=== PATIENT | female | born 1985 | race Caucasian/White ===

== ENCOUNTER 2017-11-29 07:19 | Day surgery (SDC) | payer MEDICAID, SELFPAY ==
[2017-11-26 12:01] LABS: Prothrombin Time (Protime)PT. 13.1 SECONDS (11.7-14.9)
[2017-11-26 12:02] LABS: Hematocrit 41.4 % (37-47); Hemoglobin 13.2 g/dl (12.0-15.0); Mean Corp Hgb Conc 31.9 g/gl (32-36); Mean Corpuscular Hgb 29.4 pg (27.0-32.0); Mean Corpuscular Volume 92.2 fL (81-99); Partial Thromboplast Time 27.6 Seconds (24.1-36.2); Platelet Count 169 K/mm3 (150-450); RBC Distribution Width CV 14.1 % (11.6-14.6); RBC Distribution Width SD 47.6 fl (35.1-43.9); Red Blood Count 4.49 M/mm3 (4.2-5.4); White Blood Count 7.7 K/mm3 (4.4-11.0)
[2017-11-26 12:08] LABS: Scan Indicated on CBC? Y/N NO
[2017-11-29] VITALS (8 sets, daily range): BP systolic 108–134; BP diastolic 72–90; PULSE 70–89; RESP 16–18; TEMP 36.2–36.4; O2SAT 92–97; BMI 29.7
[2017-11-29 07:50] LABS: Internal QC Validated? YES +Cl - CLEAR BKGD; Pregnancy, Urine Negative Negative
--- NOTE | 2017-11-29 08:55 | FALS_PTH ---
PATIENT: KHANH BERNAL LOC: [facility] U#:[id number] AGE/SX: 32/F ROOM: RE11/29/[address]: Dr. Jasmine Robison MD : 1985 BED: DIS: 11/29/2017 SPEC #: [id number] RECD: 11/29/17 10:37 STATUS: JAZMINE REDuy #: [id number] NATHAN: 11/29/17 08:[address]: Jasmine Menendez DEPT: SURGICAL PATHOLOGY RECD BY: Shane Hart ENTERED: 11/29/17 12:17 SP TYPE: FALL TUBES OTHR DR: Dr. Farzana Caicedo, DO Tissues: A - Fallopian tube B - Peritoneum, NOS Procedures: Surgery Specimen Level II Surgery Specimen Level IV HEADER OPERATION: Laparoscopic salpingectomy and peritoneal biopsy PRE-OP DIAGNOSIS: Sterilization request, left ovarian cyst TISSUE SUBMITTED: A ? Bilateral fallopian tubes, tag on right tube, B ? Posterior cul-de-sac peritoneum MICROSCOPIC DIAGNOSIS A. Bilateral fallopian tubes, salpingectomy: Bilateral fallopian tubes including fimbrial ends, no pathologic diagnosis. B. Posterior cul-de-sac peritoneum, biopsy: Fragments of mesothelial-lined adipose tissue with focal changes consistent with endometriosis and reactive changes. ROSA:virgil 11/30/17 MICROSCOPIC DESCRIPTION Slides are reviewed. GROSS DESCRIPTION A - Received is one container labeled with the patient's name and designated bilateral fallopian tubes, tie on right tube. The specimen consists of bilateral fallopian tubes including fimbrial ends. The right tube is identified by a suture. The right fallopian tube measures 5.5 cm in length and 0.7 cm in diameter. The left fallopian tube measures 6 cm in length and 0.7 cm in diameter. Sections reveal unremarkable cut surfaces. [place] sections are submitted in two cassettes as follows: 1 - right tube, 2 - left tube. B - Received in fixative is one container labeled with the patient's name and designated posterior cul-de-sac peritoneum. The specimen consists of two pieces of george-pink soft tissue measuring 2.5 x 0.5 x 0.2 cm and 0.4 x 0.2 x 0.1 cm. The entire specimen is submitted in one cassette. / ROSA:virgil 11/29/17 TC:5 CPT: 12208 x2, 36642
--- NOTE | 2017-11-29 10:07 | PCM.OPRPT ---
Problem List (1) Request for sterilization Status: Acute Report of Operation Date of Procedure: 11/29/17 Pre-Operative Diagnosis: Sterilization request, possible endometriosis/adenomyosis Post-Operative Diagnosis: Sterilization request, endometriosis Surgery/Procedure Performed:: Laparoscopic bilateral salpingectomy, peritoneal biopsy entry level sales associate: Farzana Castaneda Type of Anesthesia:: General, Local Anesthesiologist: Sanya Carroll Specimen's removed: 1. Bilateral tubes 2. posterior cul-de-sac biopsy Estimated Blood Loss (mL): 10 Fluids Replaced: 1000 mL Description of Procedure: Indications: Ms. Pepe is a 32-year-old para 3 desiring sterilization. She was counseled regarding management options and as well as reversible contraceptives and opted to proceed with laparoscopic bilateral salpingectomy. She also has menorrhagia and sonographic evaluation suggested adenomyosis the left hemorrhagic ovarian cyst. Following discussion agreed to proceed with peritoneal biopsy any evidence of endometriosis, possible ovarian cyst drainage possible ovarian cystectomy as indicated. Risks, benefits, indications, and alternatives of procedure were reviewed at length. Procedure: The patient was brought to the operating room and signed and was performed. She is placed in a dorsal supine position and induced under general anesthesia and intubated. She was then repositioned into dorsal lithotomy. Perineum and abdomen were prepped and draped in sterile fashion. She was then repositioned into high lithotomy and speculum placed into the vagina. The cervix was grasped at the anterior cervical lip using a single-tooth tenaculum and a Juan uterine manipulator was placed and secured. The speculum was removed from the vagina. The patient was then placed into low lithotomy attention turned to the abdomen. An inferior umbilicus incision was made using a scalpel and Veress needle was placed with successful hanging drop test and no aspirate. The abdomen was insufflated to 15 mmHg. the varies needle was removed following placement of Trendelenburg. And a 5 mm trocar was placed at this inferior umbilicus site under laparoscopic guidance confirming atraumatic entry into the abdominal cavity. The abdomen and pelvis were inspected there was normal-appearing appendix and upper abdomen. There did appear to be small splotches of blood throughout the anterior and posterior cul-de-sac consistent with hemorrhagic ruptured cyst. Right and left lower quadrant incisions were made under transillumination and continue to proceed with laparoscopy. The left tubal fimbria was identified and the tube was transected from the mesosalpinx using the Enseal device. Using serial clamping coagulation and transection salpingectomy was performed. In similar fashion salpingectomy was also performed on the right side. These were removed via the 5 mm ports. The ovaries on inspection were normal with the presence of small cysts. Thus I deferred any cyst drainage the patient was otherwise asymptomatic for ovarian cyst. The anterior posterior cul-de-sacs were then irrigated and suctioned for clear evaluation. There did appear to be a peritoneal depression just inferior to the uterosacral ligaments and the posterior cul-de-sac surrounding nonblanching lesions.. This peritoneum was resected using sharp and blunt dissection using care to avoid the underlying rectum. the peritoneal biopsy sent as a specimen. Darline was placed at the site of the peritoneal biopsy with excellent hemostasis. The Trendelenburg was reversed patient was flattened and the abdomen was desufflated the patient was given several deep breaths. The trochars were removed from the abdomen. The skin was closed using 4-0 Monocryl by the THEOLOGY PROFESSOR under my supervision. Local injection of half percent Sensorcaine was placed at the incisional sites for a total of 15 mL. The incisions were subsequently covered with Steri-Strips and OpSite dressing. The patient was then placed into dorsal supine position, awakened, extubated and she will be transported to the recovery room. sponge, instrument and needle counts were correct ?2. - Complications None - Admit VTE Documentation VTE Present on Admission: No VTE Mechan Device Prophylaxis: SCD's VTE Pharm Prophylaxis ordered?: No
[2017-11-29] MEDS: Bupivacaine Mpf 0.5% 30 ML VIAL (10:10)
--- NOTE | 2017-11-29 10:19 | OP.PCM_ITS ---
Problem List (1) Request for sterilization Status: Acute Report of Operation Date of Procedure: 11/29/17 Pre-Operative Diagnosis: Sterilization request, possible endometriosis/ adenomyosis Post-Operative Diagnosis: Sterilization request, endometriosis Surgery/Procedure Performed:: Laparoscopic bilateral salpingectomy, peritoneal biopsy hydrology teacher: Farzana Castaneda Type of Anesthesia:: General, Local Anesthesiologist: Sanya Carroll Specimen's removed: 1. Bilateral tubes 2. posterior cul-de-sac biopsy Estimated Blood Loss (mL): 10 Fluids Replaced: 1000 mL Description of Procedure: Indications: Ms. Pepe is a 32-year-old para 3 desiring sterilization. She was counseled regarding management options and as well as reversible contraceptives and opted to proceed with laparoscopic bilateral salpingectomy. She also has menorrhagia and sonographic evaluation suggested adenomyosis the left hemorrhagic ovarian cyst. Following discussion agreed to proceed with peritoneal biopsy any evidence of endometriosis, possible ovarian cyst drainage possible ovarian cystectomy as indicated. Risks, benefits, indications, and alternatives of procedure were reviewed at length. Procedure: The patient was brought to the operating room and signed and was performed. She is placed in a dorsal supine position and induced under general anesthesia and intubated. She was then repositioned into dorsal lithotomy. Perineum and abdomen were prepped and draped in sterile fashion. She was then repositioned into high lithotomy and speculum placed into the vagina. The cervix was grasped at the anterior cervical lip using a single-tooth tenaculum and a Juan uterine manipulator was placed and secured. The speculum was removed from the vagina. The patient was then placed into low lithotomy attention turned to the abdomen. An inferior umbilicus incision was made using a scalpel and Veress needle was placed with successful hanging drop test and no aspirate. The abdomen was insufflated to 15 mmHg. the varies needle was removed following placement of Trendelenburg. And a 5 mm trocar was placed at this inferior umbilicus site under laparoscopic guidance confirming atraumatic entry into the abdominal cavity. The abdomen and pelvis were inspected there was normal-appearing appendix and upper abdomen. There did appear to be small splotches of blood throughout the anterior and posterior cul-de-sac consistent with hemorrhagic ruptured cyst. Right and left lower quadrant incisions were made under transillumination and continue to proceed with laparoscopy. The left tubal fimbria was identified and the tube was transected from the mesosalpinx using the Enseal device. Using serial clamping coagulation and transection salpingectomy was performed. In similar fashion salpingectomy was also performed on the right side. These were removed via the 5 mm ports. The ovaries on inspection were normal with the presence of small cysts. Thus I deferred any cyst drainage the patient was otherwise asymptomatic for ovarian cyst. The anterior posterior cul-de-sacs were then irrigated and suctioned for clear evaluation. There did appear to be a peritoneal depression just inferior to the uterosacral ligaments and the posterior cul-de-sac surrounding nonblanching lesions.. This peritoneum was resected using sharp and blunt dissection using care to avoid the underlying rectum. the peritoneal biopsy sent as a specimen. Darline was placed at the site of the peritoneal biopsy with excellent hemostasis. The Trendelenburg was reversed patient was flattened and the abdomen was desufflated the patient was given several deep breaths. The trochars were removed from the abdomen. The skin was closed using 4-0 Monocryl by the INFORMATION TECHNOLOGY AUDIT MANAGER under my supervision. Local injection of half percent Sensorcaine was placed at the incisional sites for a total of 15 mL. The incisions were subsequently covered with Steri-Strips and OpSite dressing. The patient was then placed into dorsal supine position, awakened, extubated and she will be transported to the recovery room. sponge, instrument and needle counts were correct ?2. - Complications None - Admit VTE Documentation VTE Present on Admission: No VTE Mechan Device Prophylaxis: SCD's VTE Pharm Prophylaxis ordered?: No
--- NOTE | 2017-11-29 10:27 | PCM.DC ---
- Discharge Diagnoses Current Active Problems: Current Active and Chronic Problems Request for sterilization (Acute) Endometriosis You will use the following diet at home:: No restrictions Your food should be the consistency of: Regular Discharge Activity: Return to Normal Activity, May not drive while taking narcotic pain medications., May Shower, - - No driving for 24-48 hours Return to work on:: 12/03/17 May resume sexual activity in: 4 weeks Lifting Restrictions: 10 lb Call your doctor if you observe: Fever of 101 or Higher, Inability to urinate, Inability to have a bowel movement, Using more than one pad per hour, Shortness of breath, Chest pain, Uncontrolled pain Suture Line Care: Avoid Pulling/Pushing Cleanse incision/area with: Soap & Water Additional Dressing/Incision Instructions:: Remove incisional dressing in 24 hours, remove steristrip bandaids in 3 days Allergies/Adverse Reactions: Allergies No Known Allergies Allergy (Verified 11/22/17 09:18) Medications to take at Discharge Meloxicam [Mobic] 7.5 mg PO DAILY 11/22/17 Oxycodone [Oxyir] 5 mg PO Q4H PRN PRN 5 Days #20 tablet 11/29/17 The following prescriptions were given: Oxycodone [Oxyir] 5 mg PO Q4H PRN PRN 5 Days #20 tablet PRN Reason: Pain Primary Care Physician: Farzana Caicedo DO [Primary Care Provider] - Please Follow Up With: Jasmine Shannon MD When: 2-4 weeks
== END 2017-11-29 15:01 | disposition home or self-care (01) ==
LOC: SDC 07:19 → AC 07:20
PROVIDERS: Specialist; Visit Provider Obstetrics & Gynecology
PROC: (CPT 58661; principal; 2017-11-29 08:40)
DX: Z30.2 Encounter for sterilization (principal); N80.3 Endometriosis of pelvic peritoneum; N92.0 Excessive and frequent menstruation with regular cycle; N83.202 Unspecified ovarian cyst, left side; F17.210 Nicotine dependence, cigarettes, uncomplicated
CPT/HCPCS: 49321; 58661; 36415; 81025; 85027; 85610; 85730; 86850; 86900; 88302; 88305; J7120; C1760; J2405

== ENCOUNTER → 2018-04-08 14:58 | Outpatient (CLI) | payer MEDICAID, SELFPAY ==
[2018-04-08 17:11] LABS: Glucose 91 mg/dL (74-106)
[2018-04-08 17:54] LABS: Hemoglobin A1c 4.8 % (4.2-6.3)
[2018-04-12 18:11] LABS: HPV APTIMA, High Risk Negative (Negative)
== END ==
PROVIDERS: Visit Provider Obstetrics & Gynecology
DX: B37.9 Candidiasis, unspecified (principal)
CPT/HCPCS: 36415; 82947; 83036; 88175; G0145

== ENCOUNTER 2018-05-16 08:46 | Observation (INO) | payer MEDICAID, SELFPAY ==
[2018-05-14 17:44] LABS: Hematocrit 41.1 % (37-47); Hemoglobin 13.3 g/dl (12.0-15.0); Mean Corp Hgb Conc 32.4 g/gl (32-36); Mean Corpuscular Hgb 30.2 pg (27.0-32.0); Mean Corpuscular Volume 93.4 fL (81-99); Mean Platelet Vol. 11.2 fl (6.2-12.0); Platelet Count 192 K/mm3 (150-450); RBC Distribution Width CV 13.1 % (11.6-14.6); RBC Distribution Width SD 45.1 fl (35.1-43.9); White Blood Count 11.1 K/mm3 (4.4-11.0)
[2018-05-14 17:46] LABS: Scan Indicated on CBC? Y/N NO
[2018-05-14 17:48] LABS: International Normalized Ratio 0.9; Partial Thromboplast Time 25.9 Seconds (24.1-36.2); Prothrombin Time (Protime)PT. 12.2 SECONDS (11.7-14.9)
[2018-05-16] VITALS (12 sets, daily range): BP systolic 95–125; BP diastolic 57–83; PULSE 63–86; RESP 16–18; TEMP 36.3–37.2; O2SAT 94–99; BMI 29.7
--- NOTE | 2018-05-16 05:21 | PCM.HPOB.BLA ---
- Problem List (1) Excessive and frequent menstruation with regular cycle Status: Acute (2) Dysmenorrhea Status: Acute (3) Request for sterilization Status: Acute History and Physical Date of Admission: 05/16/18 Surgical History and Physical Date: 05/14/2018 Name: LIVIER PEPE Age: 32 Date of : 1985 Livier Pepe, a 32 year old female 3 0 1 0 3, presents for TVH on May 16, 2018 at 8:30. -- Presents for scheduled TVH for history of excessive and frequency menses with regular cycle and dysmenorrhea related to endometriosis. She had laparoscopic sterilization in 11/2017 and peritoneal biopsy confirmed endometriosis. Suspect adenomyosis as well. [facility] MEDICATIONS HISTORY: Patient is also takin. Lexapro 10 mg tablet, 1 PO QD ALLERGIES: NKA Infections - Bronchitis and Chicken pox Illnesses - anxiety Accidents - no injuries of consequence Hospitalizations - Childbirth Review of Systems: GENERAL - Denies fever, or chills SKIN - Denies skin changes EYES - wears eye glasses EARS - Denies difficulty hearing NOSE - Denies nasal congestion or bleeding MOUTH - Denies sore throat or difficulty swallowing NECK - Denies pain or swelling RESPIRATORY - Denies shortness of breath or wheezing CARDIOVASCULAR - Denies palpitations or chest pain GASTROINTESTINAL - Denies nausea, vomiting, diarrhea, constipation GENITOURINARY - vaginal itching MUSCULOSKELETAL - Denies joint or muscle pain NEUROLOGICAL - Denies localized numbness or weakness PSYCHIATRIC - Denies depression or anxiety ENDOCRINE - Denies heat or cold intolerance, weight loss or gain HEMATO-IMMUNOLOGIC - Denies excesive bleeding with cuts SOCIAL HISTORY: Alcohol Use - socially Smoking - 6 cigs per day Diet - balanced Diet, caffeine < 2 drinks per day and 4-5 cups water daily Lifestyle - moderate stress lifestyle Exercise - minimal Seat Belt Use - always 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 Maternal Grandfather: Colon Cancer. Paternal Grandfather: bladder ca. MENSTRUAL HISTORY: LMP Known?- DefiniteAmount/Duration - extended, Regularity - Irregular, Frequency - monthly days, LMP - 04/27/18, Age Onset Menarche - 13 PAST PREGNANCIES: Total Pregnancies - 4; Full Term Pregnancies - 3; Premature - 0; Abortions, Induced - 1; Abortions, Spontaneous - 0; Ectopics - 0; Multiple Births - 0; Living Children - 3 SURGICAL HISTORY: 1. 11/29/2017 lap Bilateral salpingectomy, peritoneal biopsy ; Jasmine Robison MD - 2. [place] Teeth Removal ; - 3. Elective AB ; - PHYSICAL EXAM BP- 124/82 Sitting, Right arm, regular cuff Temp- 98.5 Taken Orally Weight- 185.65007 lbs Height- 66 inch BMI:29.92 CONSTITUTIONAL - NAD, well nourished, and well developed SKIN - No rash, lesions, or ulcers HEENT - normocephalic, atraumatic, sclerae anicteric LUNGS - CTA x2 without wheezes, crackles or rales CARDIAC - Regular rate and rhythm without rubs, murmurs, or gallops BREAST - No dominant masses, no tenderness, no axillary adenopathy, no nipple discharge, no skin changes ABDOMEN - Without hepatosplenomegaly, distention, masses, rebound, or guarding; normal bowel sounds; no hernias EXTREMITIES - No edema or calf tenderness NEUROLOGICAL - normal gait, normal balance, normal motor PSYCHIATRIC - A and O to time, place, person, mood and affect External Genitial Vagina - non-tender without lesions Urethra/Urethral Meatus - non-tender Bladder - non-tender Vagina - vaginal kirkpatrick are pink and moist without loss of rugae and no evidence of atropy Cervix - without cervical motion tenderness and has normal size and features without evident lesions Uterus - enlarged uterus 8 wks, wt 125-150 g Adnexa - clear without massess or tenderness Pap - 04/08/18 NILM ULTRASOUND 11/26/17 UTERUS: 8.9 x 5.2 x 4.2 cm and is coarse in texture. ENDOMETRIAL ECHO: .7 cm. RIGHT OVARY: 3.2 x 2.1 x 2.1 cm. LEFT OVARY: 3.2 x 2.8 x 1.5 cm and contains a 4.7 x 3.4 x 3.8 cm complex mass consistent with hemorrhagic cyst. ASSESSMENT/PLAN: 1. Excessive And Frequent Menstruation With Regular Cycle and Secondary Dysmenorrhea Pathology confirmed endometriosis 11/2017 Plan for TVH - reviewed how performed and surgical risks, benefits, indications and alternatives. Pt desires to proceed. Consents signed and reviewed. Preop packet given. Discussed preoperative preparation, anticipated hospitalization and recovery. CBC, coags obtained and wnl. NPO @ [place] prior to surgery
--- NOTE | 2018-05-16 05:26 | HP.PCM_ITS ---
- Problem List (1) Excessive and frequent menstruation with regular cycle Status: Acute (2) Dysmenorrhea Status: Acute (3) Request for sterilization Status: Acute History and Physical Date of Admission: 05/16/18 Surgical History and Physical Date: 05/14/2018 Name: LIVIER PEPE Age: 32 Date of : 1985 Livier Pepe, a 32 year old female 3 0 1 0 3, presents for TVH on May 16, 2018 at 8:30. -- Presents for scheduled TVH for history of excessive and frequency menses with regular cycle and dysmenorrhea related to endometriosis. She had laparoscopic sterilization in 11/2017 and peritoneal biopsy confirmed endometriosis. Suspect adenomyosis as well. [facility] MEDICATIONS HISTORY: Patient is also takin. Lexapro 10 mg tablet, 1 PO QD ALLERGIES: NKA Infections - Bronchitis and Chicken pox Illnesses - anxiety Accidents - no injuries of consequence Hospitalizations - Childbirth Review of Systems: GENERAL - Denies fever, or chills SKIN - Denies skin changes EYES - wears eye glasses EARS - Denies difficulty hearing NOSE - Denies nasal congestion or bleeding MOUTH - Denies sore throat or difficulty swallowing NECK - Denies pain or swelling RESPIRATORY - Denies shortness of breath or wheezing CARDIOVASCULAR - Denies palpitations or chest pain GASTROINTESTINAL - Denies nausea, vomiting, diarrhea, constipation GENITOURINARY - vaginal itching MUSCULOSKELETAL - Denies joint or muscle pain NEUROLOGICAL - Denies localized numbness or weakness PSYCHIATRIC - Denies depression or anxiety ENDOCRINE - Denies heat or cold intolerance, weight loss or gain HEMATO-IMMUNOLOGIC - Denies excesive bleeding with cuts SOCIAL HISTORY: Alcohol Use - socially Smoking - 6 cigs per day Diet - balanced Diet, caffeine < 2 drinks per day and 4-5 cups water daily Lifestyle - moderate stress lifestyle Exercise - minimal Seat Belt Use - always 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 Maternal Grandfather: Colon Cancer. Paternal Grandfather: bladder ca. MENSTRUAL HISTORY: LMP Known?- DefiniteAmount/Duration - extended, Regularity - Irregular, Frequency - monthly days, LMP - 04/27/18, Age Onset Menarche - 13 PAST PREGNANCIES: Total Pregnancies - 4; Full Term Pregnancies - 3; Premature - 0; Abortions, Induced - 1; Abortions, Spontaneous - 0; Ectopics - 0; Multiple Births - 0; Living Children - 3 SURGICAL HISTORY: 1. 11/29/2017 lap Bilateral salpingectomy, peritoneal biopsy ; Jasmine Robison MD - 2. [place] Teeth Removal ; - 3. Elective AB ; - PHYSICAL EXAM BP- 124/82 Sitting, Right arm, regular cuff Temp- 98.5 Taken Orally Weight- 185.03396 lbs Height- 66 inch BMI:29.92 CONSTITUTIONAL - NAD, well nourished, and well developed SKIN - No rash, lesions, or ulcers HEENT - normocephalic, atraumatic, sclerae anicteric LUNGS - CTA x2 without wheezes, crackles or rales CARDIAC - Regular rate and rhythm without rubs, murmurs, or gallops BREAST - No dominant masses, no tenderness, no axillary adenopathy, no nipple discharge, no skin changes ABDOMEN - Without hepatosplenomegaly, distention, masses, rebound, or guarding; normal bowel sounds; no hernias EXTREMITIES - No edema or calf tenderness NEUROLOGICAL - normal gait, normal balance, normal motor PSYCHIATRIC - A and O to time, place, person, mood and affect External Genitial Vagina - non-tender without lesions Urethra/Urethral Meatus - non-tender Bladder - non-tender Vagina - vaginal kirkpatrick are pink and moist without loss of rugae and no evidence of atropy Cervix - without cervical motion tenderness and has normal size and features without evident lesions Uterus - enlarged uterus 8 wks, wt 125-150 g Adnexa - clear without massess or tenderness Pap - 04/08/18 NILM ULTRASOUND 11/26/17 UTERUS: 8.9 x 5.2 x 4.2 cm and is coarse in texture. ENDOMETRIAL ECHO: .7 cm. RIGHT OVARY: 3.2 x 2.1 x 2.1 cm. LEFT OVARY: 3.2 x 2.8 x 1.5 cm and contains a 4.7 x 3.4 x 3.8 cm complex mass consistent with hemorrhagic cyst. ASSESSMENT/PLAN: 1. Excessive And Frequent Menstruation With Regular Cycle and Secondary Dysmenorrhea Pathology confirmed endometriosis 11/2017 Plan for TVH - reviewed how performed and surgical risks, benefits, indications and alternatives. Pt desires to proceed. Consents signed and reviewed. Preop packet given. Discussed preoperative preparation, anticipated hospitalization and recovery. CBC, coags obtained and wnl. NPO @ [place] prior to surgery
[2018-05-16 05:49] LABS: Internal QC Validated? YES +Cl - CLEAR BKGD; Pregnancy, Urine Negative Negative
--- NOTE | 2018-05-16 07:15 | HYST_PTH ---
PATIENT: KHANH BERNAL LOC: [facility] U#:[id number] AGE/SX: 32/F ROOM: [id number] RE05/16/[address]: Dr. Jasmine Robison MD : 1985 BED: 1 DIS: 05/17/2018 SPEC #: [id number] RECD: 05/16/18 10:30 STATUS: JAZMINE PANCHAL #: [id number] NATHAN: 05/16/18 07:[address]: Jasmine Menendez DEPT: SURGICAL PATHOLOGY RECD BY: Lorena Salas ENTERED: 05/16/18 11:21 SP TYPE: HYSTERECT OTHR DR: Dr. Farzana Caicedo DO Tissues: Uterus, NOS Procedures: Surgery Specimen Level V HEADER OPERATION: Hysterectomy, vaginal PRE-OP DIAGNOSIS: Excessive and frequent menstruation with regular cycle and secondary dysmenorrhea, endometriosis TISSUE SUBMITTED: Uterus and cervix MICROSCOPIC DIAGNOSIS Uterus and cervix, vaginal hysterectomy: Cervix - chronic inflammation. Endometrium - secretory endometrium. Myometrium - focal superficial adenomyosis. ROSA:virgil 05/17/18 MICROSCOPIC DESCRIPTION Slides are reviewed. GROSS DESCRIPTION Received in fixative is one container labeled with the patient's name and designated uterus, cervix. The specimen consists of a hysterectomy specimen consisting of uterus with cervix weighing 140 gm and measuring 11 x 6.5 x 5 cm. The serosal surface is george, glistening. The ectocervical mucosa is unremarkable. The external os is oval in contour. The endocervical canal measures 3.5 cm in length and the endocervical mucosa is george, glistening and without mass lesion. The triangular endometrial cavity measures 5.5 cm in length and up to 4 cm in width. The endometrium is george, glistening without any mass lesion and measures up to 0.4 cm in thickness. Sections of the uterine wall do not reveal any mass lesion and it measures up to 2.5 cm in thickness. National Sales sections are submitted in six cassettes as follows: 1 - anterior cervix, 2 - posterior cervix, 3 & 4 - anterior uterine wall, 5 & 6 - posterior uterine wall. / ROSA:virgil 05/16/18 TC: 5 CPT: 94170
[2018-05-16] MEDS: Vasopressin 20 UNITS/ML Vial (08:10)
[2018-05-16] MEDS: Ketorolac 30 MG/ML Syringe IV ×2 (08:30→15:52)
--- NOTE | 2018-05-16 08:35 | PCM.OPRPT ---
Problem List (1) Excessive and frequent menstruation with regular cycle Status: Acute (2) Dysmenorrhea Status: Acute (3) Request for sterilization Status: Acute Report of Operation Date of Procedure: 05/16/18 Pre-Operative Diagnosis: Menorrhagia, endometriosis, dysmenorrhea Post-Operative Diagnosis: Menorrhagia, endometriosis, dysmenorrhea Surgery/Procedure Performed:: Total vaginal hysterectomy Description of Surgical Findings:: Normal ovaries bilaterally with left corpus luteum cyst present business operations specialist: Jose Ford business operations specialist: Tracey Smith Type of Anesthesia:: General Anesthesiologist: Hernando Bosch Specimen's removed: uterus and cervix Drains: UO 80 ml Estimated Blood Loss (mL): 100 Fluids Replaced: 800 ml Description of Procedure: Indications: Livier is a 32-year-old 4 para 3013 with a history of dysmenorrhea and heavy menses associated with endometriosis. Following counseling she opted to proceed with total vaginal hysterectomy. Risks, benefits, indications, alternatives were reviewed at length and informed consent was obtained. Procedure: The patient was brought to the operating room and signed and was performed. She is placed in dorsal supine position and induced under general anesthesia and intubated. She was then repositioned to dorsolithotomy and examination under anesthesia was performed. The perineum and vagina were prepped and draped in sterile fashion. Blackman catheter was placed into the bladder draining clear urine. Patient was placed into high lithotomy and speculum was placed into the vagina cervix grasped using a Palma tenaculum. 20 cc of 20 units of vasopressin diluted 100 cc was injected circumferentially around the cervix. A circumferential incision was made using the scalpel around the cervical vaginal junction. The vesicovaginal space was subsequently sharply dissected and the anterior cul-de-sac peritoneum identified and incised. A curved [place] was placed into the anterior cul-de-sac for further retraction. In similar fashion attention was turned to the posterior vagina and the posterior cul-de-sac was sharply entered using the Ovalles scissors. The weighted speculum was removed and all long weighted speculum was placed to the posterior cul-de-sac. The left uterosacral ligament was Marcelo clamped, cut and suture ligated using 0 Vicryl. In similar fashion this was also performed on the right. Subsequently the cardinal ligaments, uterine vessels and uterine ovarian ligaments were serially clamped, coagulated and cut using the LigaSure impact freeing the uterus and cervix en bloc. The left ovary appeared to have a corpus luteum cyst present and was no larger than 3-1/2 cm. The right ovary was not visualized however palpably small proximately 2 cm in largest diameter. A pursestring culdoplasty was performed incorporating the anterior and posterior peritoneum with the bilateral uterosacral ligaments with 0 Vicryl suture. The vaginal cuff was then reapproximated using serial 0 Vicryl figure of 8 sutures incorporating the peritoneum with hemostasis attained. The Blackman catheter was removed. The patient was awakened, extubated and transferred to the recovery room without complication. The patient tolerated the procedure well. Sponge and needle counts were correct x2. - Complications None - Admit VTE Documentation VTE Present on Admission: No VTE Mechan Device Prophylaxis: SCD's VTE Pharm Prophylaxis ordered?: No
--- NOTE | 2018-05-16 08:45 | OP.PCM_ITS ---
Problem List (1) Excessive and frequent menstruation with regular cycle Status: Acute (2) Dysmenorrhea Status: Acute (3) Request for sterilization Status: Acute Report of Operation Date of Procedure: 05/16/18 Pre-Operative Diagnosis: Menorrhagia, endometriosis, dysmenorrhea Post-Operative Diagnosis: Menorrhagia, endometriosis, dysmenorrhea Surgery/Procedure Performed:: Total vaginal hysterectomy Description of Surgical Findings:: Normal ovaries bilaterally with left corpus luteum cyst present fine jewelry sales associate: Jose Ford fine jewelry sales associate: Tracey Smith Type of Anesthesia:: General Anesthesiologist: Hernando Bosch Specimen's removed: uterus and cervix Drains: UO 80 ml Estimated Blood Loss (mL): 100 Fluids Replaced: 800 ml Description of Procedure: Indications: Livier is a 32-year-old 4 para 3013 with a history of dysmenorrhea and heavy menses associated with endometriosis. Following counseling she opted to proceed with total vaginal hysterectomy. Risks, benefits, indications, alternatives were reviewed at length and informed consent was obtained. Procedure: The patient was brought to the operating room and signed and was performed. She is placed in dorsal supine position and induced under general anesthesia and intubated. She was then repositioned to dorsolithotomy and examination under anesthesia was performed. The perineum and vagina were prepped and draped in sterile fashion. Blackman catheter was placed into the bladder draining clear urine. Patient was placed into high lithotomy and speculum was placed into the vagina cervix grasped using a Palma tenaculum. 20 cc of 20 units of vasopressin diluted 100 cc was injected circumferentially around the cervix. A circumferential incision was made using the scalpel around the cervical vaginal junction. The vesicovaginal space was subsequently sharply dissected and the anterior cul-de-sac peritoneum identified and incised. A curved [place] was placed into the anterior cul-de-sac for further retraction. In similar fashion attention was turned to the posterior vagina and the posterior cul-de-sac was sharply entered using the Ovalles scissors. The weighted speculum was removed and all long weighted speculum was placed to the posterior cul-de-sac. The left uterosacral ligament was Marcelo clamped, cut and suture ligated using 0 Vicryl. In similar fashion this was also performed on the right. Subsequently the cardinal ligaments, uterine vessels and uterine ovarian ligaments were serially clamped, coagulated and cut using the LigaSure impact freeing the uterus and cervix en bloc. The left ovary appeared to have a corpus luteum cyst present and was no larger than 3-1/2 cm. The right ovary was not visualized however palpably small proximately 2 cm in largest diameter. A pursestring culdoplasty was performed incorporating the anterior and posterior peritoneum with the bilateral uterosacral ligaments with 0 Vicryl suture. The vaginal cuff was then reapproximated using serial 0 Vicryl figure of 8 sutures incorporating the peritoneum with hemostasis attained. The Blackman catheter was removed. The patient was awakened, extubated and transferred to the recovery room without complication. The patient tolerated the procedure well. Sponge and needle counts were correct x2. - Complications None - Admit VTE Documentation VTE Present on Admission: No VTE Mechan Device Prophylaxis: SCD's VTE Pharm Prophylaxis ordered?: No
--- NOTE | 2018-05-16 09:18 | DCINST_ITS ---
Discharge Diet: No Restrictions Discharge Activity: Return to Normal Activity, May not drive while taking narcotic pain medications., May Shower, - - No tub baths, no intercourse, no tampon use. May resume sexual activity in: 6 weeks Lifting Restrictions: 10 lb Call your doctor if you observe: Fever of 101 or Higher, Inability to urinate, Inability to have a bowel movement, Using more than one pad per hour, Shortness of breath, Chest pain, Calf discomfort, Uncontrolled pain Suture Line Care: Avoid Pulling/Pushing Allergies/Adverse Reactions: Allergies No Known Allergies Allergy (Verified 05/08/18 09:54) Medications to take at Discharge Biotin 5,000 mcg PO DAILY 05/08/18 Escitalopram Oxalate [Lexapro] 10 mg PO DAILY 05/08/18 Hyaluronate Sodium/Vit C [Sv Hyaluronic Acid-Vit C Cap] 2 each PO DAILY 05/08/18 Multivit with Calcium,Iron,Min [Multiple Vitamins For Women] 1 each PO DAILY 05/08/18 Docusate Sodium [Colace] 100 mg PO BID PRN PRN #60 capsule 05/16/18 Ibuprofen 600 mg PO TID PRN #30 tablet 05/16/18 Oxycodone [Oxyir] 5 mg PO Q6H PRN PRN 5 Days #20 tablet 05/16/18 The following prescriptions were given: Oxycodone [Oxyir] 5 mg PO Q6H PRN PRN 5 Days #20 tablet PRN Reason: Severe Pain (6-10/10) Docusate Sodium [Colace] 100 mg PO BID PRN PRN #60 capsule PRN Reason: Constipation Ibuprofen 600 mg PO TID PRN #30 tablet PRN Reason: Pain Primary Care Physician: Farzana Caicedo DO [Primary Care Provider] - Test Results: Test results from this visit will be discussed in further detail at your follow- up appointment, if applicable. Please Follow Up With: Jasmine Shannon MD When: 1-2 weeks
[2018-05-16] MEDS: Dextrose 5%-Lactated Ringers 1,000 ML 125 ML IV ×2 (10:59→18:29)
[2018-05-16] MEDS: Escitalopram Oxalate 10 MG Tablet PO (10:59)
[2018-05-16] MEDS: oxyCODONE 5 MG Tablet PO ×2 (13:43→23:17)
--- NOTE | 2018-05-16 18:03 | PCM.PN.OB ---
Patient Problems: Active and Suspected Problems S/P hysterectomy (Acute) Excessive and frequent menstruation with regular cycle (Acute) Dysmenorrhea (Acute) Endometriosis (Acute) Subjective: Denies nausea, vomiting. She tolerated a regular diet. OOB and voiding. Pain is minimal. No complaints. Requests a nicotine patch. Nathalie smokes approximately 6 cigarettes daily. Objective: avss - Physical Exam General: Alert, Oriented x3, Cooperative, No apparent distress HEENT: Atraumatic, Normocephalic Lungs: Clear to auscultation, Normal air movement Cardiovascular: Regular rate, Regular Rhythm, Normal S1, Normal S2, No murmurs Abdomen: Soft, Non Tender, Non-Distended, Passing Flatus Extremities: No edema, No Calf Tenderness Neurological: Neuro grossly intact Psych/Mental Status: Normal Affect, Appropriate, Alert and oriented to time, place, person, mood and affect Vital Signs Temp Pulse Resp BP Pulse Ox 98.1 F 70 18 96/57 L 98 05/16/18 14:32 05/16/18 14:32 05/16/18 14:32 05/16/18 14:32 05/16/18 14:32 Oxygen Flow Rate (L/min) 2 Oxygen Delivery Method Room Air Weight: 83.5 kg Body Mass Index (BMI) 29.7 Intake and Output for Last 24 Hours 05/14/18 05/15/18 05/16/18 23:59 23:59 23:59 Intake Total 3517 / 3517 Output Total 1200 / 1200 Balance 2317 / 2317 Laboratory Tests Past 24 Hrs 05/16/18 05/16/18 05:43 06:24 Urine Test Negative Blood Type O POSITIVE Antibody Screen NEGATIVE Medical Necessity - Tobacco Use Smoking Status: Current every day smoker Assessment/Plan All Active Problems S/P hysterectomy (Acute) Excessive and frequent menstruation with regular cycle (Acute) Dysmenorrhea (Acute) Endometriosis (Acute) Request for sterilization (Acute) 32yo s/p TVH doing well. -Reviewed intraoperative findings. -Encouraged ambulation -Lovenox for DVT ppx -Regular diet -Routine postop care -Nicotine patch ordered per patient request
[2018-05-16] MEDS: Enoxaparin 40 MG/0.4 ML Syringe SC (18:25)
[2018-05-16] MEDS: Ketorolac 10 MG Tablet PO (22:30)
[2018-05-16] MEDS: Acetaminophen 500 MG Tablet 1000 MG PO (22:30)
[2018-05-17 04:10] VITALS: BP 111/72; PULSE 69; RESP 16; TEMP 36.8; O2SAT 97
[2018-05-17] MEDS: Ketorolac 10 MG Tablet PO (05:51)
[2018-05-17] MEDS: Acetaminophen 500 MG Tablet 1000 MG PO (05:51)
[2018-05-17 06:28] LABS: Creatinine, Serum 0.64 mg/dL (0.55-1.02); EST Glomerular Filtration Rate 113 mL/min (>60); Est Glom Filt Rate - Afr Amer 137 mL/min (>60); Estimated Creatinine Clearance 117.04 ml/min; Hemoglobin 11.7 g/dl (12.0-15.0); Mean Corp Hgb Conc 32.5 g/gl (32-36); Mean Corpuscular Hgb 31.1 pg (27.0-32.0); Mean Corpuscular Volume 95.7 fL (81-99); Mean Platelet Vol. 11.1 fl (6.2-12.0); Platelet Count 137 K/mm3 (150-450); RBC Distribution Width SD 43.6 fl (35.1-43.9); Red Blood Count 3.76 M/mm3 (4.2-5.4); White Blood Count 12.1 K/mm3 (4.4-11.0)
[2018-05-17 06:30] LABS: Scan Indicated on CBC? Y/N NO
--- NOTE | 2018-05-17 08:00 | PCM.WORK.EX ---
Work/School Excuse Work/School Excuse for:: Patient Please excuse this person from:: Work From: 05/16/18 through: 06/28/18 Restrictions: No Heavy Lifting, Dina - Livier may go to school in May and may return to work before 06/28/18 on light duty and should lift no more than 10 lb.
--- NOTE | 2018-05-17 08:04 | PCM.PN.OB ---
Patient Problems: Active and Suspected Problems S/P hysterectomy (Acute) Excessive and frequent menstruation with regular cycle (Acute) Dysmenorrhea (Acute) Endometriosis (Acute) Subjective: No issues overnight. She is sore this morning, but notes the Oxycodone helps despite making her drowsy. She is passing flatus. No nausea, vomiting, chest pain or shortness of breath. No complaints. Objective: AVSS - Physical Exam General: Alert, Oriented x3, Cooperative, No apparent distress HEENT: Atraumatic, Normocephalic Lungs: Clear to auscultation, Normal air movement Cardiovascular: Regular rate, Regular Rhythm, Normal S1, Normal S2, No murmurs Abdomen: Bowel Sounds Present, Soft, Non Tender, Non-Distended Extremities: No edema, No Calf Tenderness Neurological: Neuro grossly intact Psych/Mental Status: Normal Affect, Appropriate, Alert and oriented to time, place, person, mood and affect Vital Signs Temp Pulse Resp BP Pulse Ox 98.3 F 69 16 111/72 97 05/17/18 04:10 05/17/18 04:10 05/17/18 04:10 05/17/18 04:10 05/17/18 04:10 Oxygen Flow Rate (L/min) 2 Oxygen Delivery Method Room Air Weight: 83.5 kg Body Mass Index (BMI) 29.7 Intake and Output for Last 24 Hours 05/15/18 05/16/18 05/17/18 23:59 23:59 23:59 Intake Total 4217 / 4217 400 / 400 Output Total 2900 / 2900 350 / 350 Balance 1317 / 1317 50 / 50 Laboratory Tests Past 24 Hrs 05/17/18 05/17/18 05:57 05:57 WBC 12.1 H RBC 3.76 L Hgb 11.7 L Hct 36.0 L MCV 95.7 MCH 31.1 MCHC 32.5 RDW 13.0 RDW Differential 43.6 Plt Count 137 L MPV 11.1 Creatinine 0.64 Estim Creat Clear Calc 117.04 Est GFR (MDRD) Af Amer 137 Est GFR (MDRD) Non-Af 113 Medical Necessity - Tobacco Use Smoking Status: Current every day smoker Assessment/Plan All Active Problems S/P hysterectomy (Acute) Excessive and frequent menstruation with regular cycle (Acute) Dysmenorrhea (Acute) Endometriosis (Acute) Request for sterilization (Acute) 32yo POD#1 s/p TVH doing well. -Work/school note provided -d/c home today
--- NOTE | 2018-05-17 08:07 | DCINST_ITS ---
Discharge Diet: No Restrictions Discharge Activity: Return to Normal Activity, May not drive while taking narcotic pain medications., May Shower, - - No tub baths, no intercourse, no tampon use. May resume sexual activity in: 6 weeks Lifting Restrictions: 10 lb Call your doctor if you observe: Fever of 101 or Higher, Inability to urinate, Inability to have a bowel movement, Using more than one pad per hour, Shortness of breath, Chest pain, Calf discomfort, Uncontrolled pain Suture Line Care: Avoid Pulling/Pushing Allergies/Adverse Reactions: Allergies No Known Allergies Allergy (Verified 05/08/18 09:54) Medications to take at Discharge Biotin 5,000 mcg PO DAILY 05/08/18 Escitalopram Oxalate [Lexapro] 10 mg PO DAILY 05/08/18 Hyaluronate Sodium/Vit C [Sv Hyaluronic Acid-Vit C Cap] 2 each PO DAILY 05/08/18 Multivit with Calcium,Iron,Min [Multiple Vitamins For Women] 1 each PO DAILY 05/08/18 Docusate Sodium [Colace] 100 mg PO BID PRN PRN #60 capsule 05/16/18 Ibuprofen 600 mg PO TID PRN #30 tablet 05/16/18 Nicotine [Nicoderm Cq] 7 mg TRANSDERM. DAILY 30 Days #30 patch 05/16/18 Oxycodone [Oxyir] 5 mg PO Q6H PRN PRN 5 Days #20 tablet 05/16/18 The following prescriptions were given: Oxycodone [Oxyir] 5 mg PO Q6H PRN PRN 5 Days #20 tablet PRN Reason: Severe Pain (6-10/10) Docusate Sodium [Colace] 100 mg PO BID PRN PRN #60 capsule PRN Reason: Constipation Nicotine [Nicoderm Cq] 7 mg TRANSDERM. DAILY 30 Days #30 patch Ibuprofen 600 mg PO TID PRN #30 tablet PRN Reason: Pain Primary Care Physician: Farzana Caicedo DO [Primary Care Provider] - Test Results: Test results from this visit will be discussed in further detail at your follow- up appointment, if applicable. Please Follow Up With: Jasmine Shannon MD When: 1-2 weeks
[2018-05-17 08:22] VITALS: BP 119/80; PULSE 66; RESP 14; TEMP 36.9; O2SAT 98
== END 2018-05-17 09:30 | disposition home or self-care (01) ==
LOC: MS2 10:07 → SDC 10:07
PROVIDERS: Admitting Provider Obstetrics & Gynecology; Referring Provider Obstetrics & Gynecology; Visit Provider Obstetrics & Gynecology
PROC: (CPT 58260; principal; 2018-05-16 06:55)
DX: N92.0 Excessive and frequent menstruation with regular cycle (principal); N80.0 Endometriosis of uterus; N83.12 Corpus luteum cyst of left ovary; F41.9 Anxiety disorder, unspecified; Z79.899 Other long term (current) drug therapy; F17.210 Nicotine dependence, cigarettes, uncomplicated; F32.9 Major depressive disorder, single episode, unspecified
CPT/HCPCS: 00940; 58260; 36415; 81025; 82565; 85027; 85610; 85730; 86850; 86900; 88307; 96361; 96372; 96374; 99218; J7120; G0378; G0379; J2405

== ENCOUNTER → 2018-06-27 15:05 | Outpatient (CLI) | payer MEDICAID, SELFPAY ==
[2018-06-27 15:46] LABS: Absolute Lymphocyte Count 2.51 X10^3/ul (0.83-4.51); Absolute Neutrophil Count 6.2 X10^3/uL (2.0-7.7); Basophil# 0.03 X10^3/uL; Basophil% 0.3 % (0-1); Eosinophil# 0.09 X10^3/uL; Eosinophils% 0.9 % (0-5); Hemoglobin 13.9 g/dl (12.0-15.0); Lymphocyte # 2.51 X10^3/ul (4.0); Lymphocyte % 25.8 % (19-41); Mean Corp Hgb Conc 32.3 g/gl (32-36); Mean Corpuscular Hgb 30.5 pg (27.0-32.0); Mean Corpuscular Volume 94.3 fL (81-99); Monocyte# 0.88 X10^3/uL; Neutrophil # 6.21 X10^3/uL (2.7-7.7); Neutrophil % 63.9 % (47-70); Platelet Count 186 K/mm3 (150-450); RBC Distribution Width CV 13.4 % (11.6-14.6); RBC Distribution Width SD 45.9 fl (35.1-43.9); Red Blood Count 4.56 M/mm3 (4.2-5.4); White Blood Count 9.7 K/mm3 (4.4-11.0)
[2018-06-27 15:47] LABS: POSITIVE COUNT NO; POSITIVE DIFFERENTIAL NO; POSITIVE MORPHOLOGY NO
[2018-06-27 16:10] LABS: AST(SGOT) 15 U/L (15-37); Alanine Aminotransfer ALT/SGPT 36 U/L (13-56); Albumin, Serum 3.7 g/dL (3.2-5.0); Alkaline Phosphatase 67 U/L (45-117); Anion Gap 8 (5-15); BUN 12 mg/dL (7-18); BUN/Creat Ratio 20.6 RATIO (10-20); Calcium,Total 8.9 mg/dL (8.5-10.1); Chloride 105 mmol/L (98-107); Creatinine, Serum 0.58 mg/dL (0.55-1.02); EST Glomerular Filtration Rate 126 mL/min (>60); Est Glom Filt Rate - Afr Amer 152 mL/min (>60); Globulin 3.7 g/dL (2.2-4.2); Glucose 88 mg/dL (74-106); Potassium 4.1 mmol/L (3.5-5.1); Protein, Total 7.4 g/dL (6.4-8.2); Sodium Level 140 mmol/L (136-145)
== END ==
PROVIDERS: Visit Provider Obstetrics & Gynecology
DX: R10.9 Unspecified abdominal pain (principal)
CPT/HCPCS: 36415; 80053; 85025